=== PATIENT | male | born 1970 | race Native Hawaiian/Other Pacific Islander ===

== ENCOUNTER 2022-07-20 07:48 | Day surgery (SDC) | payer BC ==
--- NOTE | 2022-07-19 10:07 | HP ---
DATE OF SURGERY: 07/20/2022 HISTORY OF PRESENT ILLNESS: The patient is a 51-year-old male with complaints of umbilical hernia. The patient would like to have surgery for this. PAST MEDICAL HISTORY: None. PAST SURGICAL HISTORY: Hernia repair. ALLERGIES: NKDA. MEDICATIONS: None. FAMILY HISTORY: Diabetes. SOCIAL HISTORY: Current smoker, occasional alcohol. REVIEW OF SYSTEMS: CONSTITUTIONAL: Denies fever or chills. CHEST: Denies shortness of breath. CVS: Denies chest pain. ABDOMEN: Reports abdominal hernia pain. PHYSICAL EXAMINATION: GENERAL: No acute distress. CHEST: Nonlabored. No shortness of breath. CVS: Regular rate and rhythm. ABDOMEN: Soft. Umbilical hernia. IMPRESSION: Symptomatic umbilical hernia. PLAN: Umbilical hernia repair with possible mesh with Dr. Oscar Eng. As dictated by Latha Sweet NP.
[~2022-07-20 07:48] MED LIST: Sensorcaine 0.25% 10 ML ONE
[2022-07-20] MEDS ORDERED: KEFZOL 1 GM** 3 G in Sodium Chloride 0.9% 50 ML 50 ML IV ONE (07:58)
[2022-07-20] MEDS ORDERED: Lactated Ringers 1,000 ML IV SCH (08:00)
[2022-07-20] MEDS ORDERED: Lactated Ringers 1,000 ML IV ONE ×2 (08:24→11:52)
[2022-07-20] MEDS ORDERED: Versed 2 MG/2 ML Injection ONE (09:58)
[2022-07-20] MEDS ORDERED: Zemuron 100 MG/10 ML ONE ×2 (09:58→10:51)
[2022-07-20] MEDS ORDERED: DIPRIVAN 200 MG/20 ML IV ONE (09:58)
[2022-07-20] MEDS ORDERED: SUBLIMAZE 250 MCG/5 ML ONE (09:58)
[2022-07-20] MEDS ORDERED: Marcaine 0.5%/Epinephrine 10 ML ONE (10:45)
[2022-07-20] MEDS ORDERED: KEFZOL 1 GM ONE (10:52)
[2022-07-20] MEDS ORDERED: BRIDION 200MG/2ML IV ONE (11:02)
[2022-07-20] MEDS ORDERED: Hydromorphone 1 mg/ml Injection ONE (11:49)
--- NOTE | 2022-07-20 11:59 | OP ---
SURGERY DATE/TIME: 07/20/2022 1011 PREOPERATIVE DIAGNOSIS: Symptomatic umbilical/ventral hernia. POSTOPERATIVE DIAGNOSIS: Symptomatic umbilical/ventral hernia incarcerated. PROCEDURE: Ventral herniorrhaphy with mesh. SURGEON: Oscar Eng M.D. ANESTHESIA: General. COMPLICATIONS: None. CONDITION: Stable. INDICATION: The patient with symptomatic hernia. DESCRIPTION OF PROCEDURE: Taken to surgery. General anesthetic. Routine prep and drape. There were components, one umbilical and a ventral. These were both reduced. They were put together as one. They were repaired with one piece of mesh which was circular was pushed in and pulled up. Four quadrant sutures, four inner quadrant sutures 0 Prolene approximated nicely, laid nicely. The mesh was able to be basically totally covered over as it was everted into the field. Skin closed with 4-0 Vicryl and Steri-Strips. The patient tolerated the procedure satisfactorily.
[2022-07-20 12:44] VITALS: BP 149/99; PULSE 64; O2SAT 96
== END 2022-07-20 12:51 | disposition home or self-care (01) ==
LOC: SDC 07:48
PROVIDERS: ATTEND Surgery
DX: K43.6 Other and unspecified ventral hernia with obstruction, without gangrene (principal)
CPT/HCPCS: 64488; 76937; 76942; C1781; J0690; J1170; J2250; J2704; J3010; L0625